=== PATIENT | male | born 1960 | race Caucasian/White ===

== ENCOUNTER → 2017-01-09 | Day surgery (SDC) | payer MEDICAID ==
[~2017-01-09] VITALS: Ht 177.8 cm; Wt 201.4 kg
[~2017-01-09] MED LIST: *RESP: ALBUTEROL 2.5 MG/3 ML NEB (PRN) PERIprocedural Use ONLY NEB ONE; ACETAMINOPHEN 1000 MG/100 ML VIAL IV ONE; ACETAMINOPHEN/HYDROcodone 325 MG/5 MG TAB PO PRN; BELLADONNA ALKALOIDS/OPIUM 60 MG SUPP RECTAL SCH; CHLORHEXIDINE GLUCONATE 2 % 1 PACK (2 CLOTHS) TOPICAL PRN; CIPROFLOXACIN/DEXT 400 MG/200 ML IV SCH; DIGO0.25 PO; DILT120T PO; DO NOT ADM ANY ANTICOAGULANT DRUGS PRN; FURO1TAB62 PO; INSULIN HUMAN REGULAR 1,000 UNITS/10 ML VIAL SQ PRN; IOHEXOL 350 MG/ML 50 ML BTL (for RAD DIAG) OTHER ONE; KETOROLAC TROMETHAMINE 60 MG/2 ML (IM) VIAL IM ONE; LACTATED RINGER'S 1000 ML INJ 1,000 ML IV ONE; LACTATED RINGER'S 1000 ML IV PRN; METO100T PO; METOPROLOL TARTRATE 25 MG TAB PO PRN; MIDAZOLAM HCL 2 MG/2 ML VIAL ONE; ONDANSETRON HCL 4 MG/2 ML VIAL IV PUSH ONE; ONDANSETRON HCL 4 MG/2 ML VIAL IV PUSH PRN; POTA10TA8 PO; POVIDONE IODINE 5% (ANTISEPSIS KIT) 4 APPLICATIONS EACH NARE PRN; PROPOFOL 200 MG/20 ML AMP IV ONE; SODIUM CHLORID 0.9% 500 ML IV PRN; SUGAMMADEX SODIUM 200 MG/2 ML VIAL IV PUSH ONE; WARF-21 PO; WARF-23 PO; fentaNYL CITRATE 250 MCG/5 ML AMP ONE
[2017-01-09 10:33] VITALS: BP 125/83; PULSE 88; RESP 22; TEMP 98; O2SAT 95
[2017-01-09 10:57] LABS: AUTOMATED NEUTROPHIL # 6.1 TH/MM3 (1.8-7.7); BASOPHIL % 0.2 % (0.0-2.0); EOSINOPHIL % 0.1 % (0.0-4.0); HEMATOCRIT 38.1 % (39.0-51.0); HEMO FLAGS DIFF FINAL; LYMPH % 14.2 % (9.0-44.0); LYMPHOCYTE # 1.1 TH/MM3 (1.0-4.8); MEAN CELL VOLUME 88.5 FL (80.0-100.0); MEAN CORPUSCULAR HEMOGLOBIN 29.8 PG (27.0-34.0); MEAN CORPUSCULAR HGB CONC 33.7 % (32.0-36.0); NEUT % 79.5 % (16.0-70.0); PLATELET COUNT 181 TH/MM3 (150-450); RED BLOOD COUNT 4.31 MIL/MM3 (4.50-5.90); RED CELL DISTRIBUTION WIDTH 15.1 % (11.6-17.2); WHITE BLOOD COUNT 7.7 TH/MM3 (4.0-11.0)
[2017-01-09 11:03] LABS: INTERNATIONAL NORMALIZED RATIO 1.1 RATIO
--- NOTE | 2017-01-09 14:36 | PD.OP ---
Operative Report Date of Surgery: Jan 09, 2017 Preoperative Diagnosis: Hematuria Postoperative Diagnosis: Same Procedure: Cystoscopy bilateral retrograde studies Anesthesia: Gen. LMA Surgeon: Evan Orozco Cement Sprayer Helper(s): None Resident Surgeon: None Operation and Findings: This is a 56-year-old male who presented the office with evidence of gross hematuria. Patient presented today to undergo cystoscopy bilateral retrograde study. Renal bladder sono from 10/25/16 was within normal limits. Urine cytology is currently pending and his PSA was 0.41. Risk and benefits were discussed and he is willing to proceed. Patient was brought to the operating room and identified myself as Mars Campbell. He is placed in dorsal lithotomy position, prepped and draped in usual sterile fashion, received preprocedure antibiotics, and general LMA anesthesia was administered. 22 Jordanian cystoscopy was inserted into the bladder. This was difficult due to the patient's morbid obesity. Santos cystoscopy did not reveal any abnormalities. Initially, 30 lens was used in the 70 lens was then used. The left ureteral orifice was identified and a 5 Jordanian opening catheter inserted in the left ureteral orifice and retrograde study was performed. Normal filling of the ureter and right collecting system was identified. This was repeated on the right side with a normal left ureter and left collecting system identified. There were no complications and the bladder was evacuated and the scope removed and he was extubated and transferred her in stable condition. He will follow-up in the office to undergo urine cytology results. Patient is currently on Coumadin for his history of atrial fibrillation which could be a cause for the patient's intermittent hematuria. No abnormalities were identified. Evan Orozco DO Jan 09, 2017 14:36
[2017-01-09 16:16] VITALS: BP 144/77; PULSE 89; RESP 16; TEMP 97.8; O2SAT 95
== END | disposition home or self-care (01) ==
LOC: HSDC 09:11
PROVIDERS: ATTEND Urology
DX: R31.9 Hematuria, unspecified (principal); R39.9 Unspecified symptoms and signs involving the genitourinary system; I48.91 Unspecified atrial fibrillation; G47.30 Sleep apnea, unspecified; Z79.01 Long term (current) use of anticoagulants; Z80.42 Family history of malignant neoplasm of prostate
CPT/HCPCS: 00910; 52000; 74420; 85025; 85610; C1769; G0103; J0131; J1885; J2250; J2405; J3010; J7120; J7613; Q9967